=== PATIENT | female | born 1950 | race Caucasian/White ===

== ENCOUNTER 2020-07-01 11:14 | Emergency (ER) | payer OTHER, SELFPAY ==
[~2020-07-01 11:14] MED LIST: ASPIRIN81 MG PO; CENTRUM CHEWAB1 EACH PO; DECADRON4 MG PO; ESOMEPRAZOLE MA40 MG PO; FISH OIL + D31 EACH PO; FISH OIL 1,2001 EACH PO; OMEPRAZOLE20 MG PO; SIMVASTATIN10 MG PO; STOOL SOFTENER100 MG PO; VALSARTAN-HCTZ1 EAC2 PO; XYZAL5 MG PO; ZANTAC 150 MG150 MG PO; ZETIA10 MG PO; ZOFRAN4 MG PO
[2020-07-01 12:43] LABS: HEMOGLOBIN 14.5 gm/dl (12.3-15.3); RED BLOOD COUNT 4.78 M/UL (4.00-5.10); WHITE BLOOD COUNT 9.4 K/UL (4.5-11.0)
[2020-07-01 13:04] LABS: BUN/CREATININE RATIO 15 (0-10)
[2020-07-01] MEDS ORDERED: HYDROCODON-ACE1 EAC4 PO (19:10)
[2020-07-18] MEDS ORDERED: IRBESARTAN-HCT1 EAC1 PO (06:35)
[2020-07-18] MEDS ORDERED: PROMETHAZINE12.5 M1 PO (06:35)
== END 2020-07-01 19:55 | disposition home or self-care (01) ==
LOC: ER1 11:14
PROVIDERS: Student in an Organized Health Care Education/Training Program
DX: S22.081A Stable burst fracture of T11-T12 vertebra, initial encounter for closed fracture (principal); I10 Essential (primary) hypertension; Z88.5 Allergy status to narcotic agent; W18.30XA Fall on same level, unspecified, initial encounter; Y93.29 Activity, other involving ice and snow
CPT/HCPCS: 70450; 71260; 72125; 72128; 72131; 73030; 73562; 73590; 80053; 82550; 82553; 83874; 84484; 85025; 96374; 99284; J2405; Q9967

== ENCOUNTER → 2020-07-13 | Outpatient (CLI) | payer OTHER, SELFPAY ==
[~2020-07-13] MED LIST changes: +HYDROCODON-ACE1 EAC4 PO; +IRBESARTAN-HCT1 EAC1 PO; +PROMETHAZINE12.5 M1 PO
== END ==
LOC: NM 07:36
DX: R94.31 Abnormal electrocardiogram [ECG] [EKG] (principal)
CPT/HCPCS: ECHO; 78452; 93306; A9502; J2785

== ENCOUNTER → 2020-07-17 | Outpatient (CLI) | payer OTHER, SELFPAY ==
[2020-07-17 14:04] LABS: HEMOGLOBIN 14.4 gm/dl (12.3-15.3); RED BLOOD COUNT 4.74 M/UL (4.00-5.10); WHITE BLOOD COUNT 6.8 K/UL (4.5-11.0)
[2020-07-17 14:26] LABS: BUN/CREATININE RATIO 19 (0-10)
== END ==
LOC: OPSV2 12:30
PROVIDERS: Orthopaedic Surgery
DX: Z01.818 Encounter for other preprocedural examination (principal); M43.8X4 Other specified deforming dorsopathies, thoracic region; S22.081A Stable burst fracture of T11-T12 vertebra, initial encounter for closed fracture; R94.31 Abnormal electrocardiogram [ECG] [EKG]; R00.1 Bradycardia, unspecified
CPT/HCPCS: 36415; 71046; 80048; 85027; 93005

== ENCOUNTER → 2020-07-18 | Day surgery (SDC) | payer OTHER, SELFPAY | END | disposition home or self-care (01) | LOC: OR 06:03 | PROVIDERS: Orthopaedic Surgery | PROC: 0PU43JZ Supplement Thoracic Vertebra with Synthetic Substitute, Percutaneous Approach (ICD-10-PCS; 2020-07-18) | PROC: 0PB43ZX Excision of Thoracic Vertebra, Percutaneous Approach, Diagnostic (ICD-10-PCS; 2020-07-18) | PROC: 0PS43ZZ Reposition Thoracic Vertebra, Percutaneous Approach (ICD-10-PCS; principal; 2020-07-18 07:30) | DX: S22.081A Stable burst fracture of T11-T12 vertebra, initial encounter for closed fracture (principal); M40.294 Other kyphosis, thoracic region; I10 Essential (primary) hypertension; E78.5 Hyperlipidemia, unspecified; K21.9 Gastro-esophageal reflux disease without esophagitis; Z79.82 Long term (current) use of aspirin; Z79.899 Other long term (current) drug therapy; Z79.891 Long term (current) use of opiate analgesic; Z20.822 Contact with and (suspected) exposure to COVID-19; Z88.5 Allergy status to narcotic agent; W00.0XXA Fall on same level due to ice and snow, initial encounter | CPT/HCPCS: C1713; J0690; J1100; J1885; J2001; J2405; J2550; J2704; J2710; J3010; J7120; Q9962 ==

== ENCOUNTER 2020-07-27 15:35 | Emergency (ER) | payer OTHER ==
[2020-07-27 17:07] LABS: HEMOGLOBIN 13.4 gm/dl (12.3-15.3); RED BLOOD COUNT 4.5 M/UL (4.00-5.10); WHITE BLOOD COUNT 5.3 K/UL (4.5-11.0)
[2020-07-27 17:31] LABS: BUN/CREATININE RATIO 17 (0-10)
[2020-07-28 03:57] LABS: HEMOGLOBIN 13.1 gm/dl (12.3-15.3); RED BLOOD COUNT 4.48 M/UL (4.00-5.10); WHITE BLOOD COUNT 5.2 K/UL (4.5-11.0)
[2020-07-28 04:10] LABS: BUN/CREATININE RATIO 19 (0-10)
== END 2020-07-28 12:05 | disposition home or self-care (01) ==
LOC: ER1 15:35 → CDU 18:18
PROVIDERS: Emergency Medicine; Internal Medicine
DX: R07.89 Other chest pain (principal); I10 Essential (primary) hypertension; I25.10 Atherosclerotic heart disease of native coronary artery without angina pectoris; I49.3 Ventricular premature depolarization; K21.9 Gastro-esophageal reflux disease without esophagitis; E78.5 Hyperlipidemia, unspecified; F41.9 Anxiety disorder, unspecified; Z20.822 Contact with and (suspected) exposure to COVID-19; Z95.1 Presence of aortocoronary bypass graft; Z88.5 Allergy status to narcotic agent; Z98.890 Other specified postprocedural states; Z79.82 Long term (current) use of aspirin; Z79.899 Other long term (current) drug therapy; Z86.16 Personal history of COVID-19
CPT/HCPCS: 0240U; 71045; 80048; 80053; 82550; 82553; 83735; 83874; 83880; 84484; 85025; 85027; 85610; 93005; 99285; G0378; Q9967

== ENCOUNTER → 2020-08-14 | Outpatient (CLI) | payer OTHER | LOC: US 10:05 | DX: R10.11 Right upper quadrant pain (principal) | CPT/HCPCS: 76705 ==

== ENCOUNTER → 2020-09-03 | Outpatient (CLI) | payer OTHER, SELFPAY | LOC: NM 08-31 13:50 | DX: R14.0 Abdominal distension (gaseous) (principal); Z87.898 Personal history of other specified conditions | CPT/HCPCS: 78227; A9537; J2805 ==

== ENCOUNTER → 2020-09-19 | Outpatient (CLI) | payer OTHER | LOC: MAMO 08-29 14:00 | DX: Z12.31 Encounter for screening mammogram for malignant neoplasm of breast (principal) | CPT/HCPCS: 77063; 77067 ==

== ENCOUNTER → 2020-12-05 | Outpatient (CLI) | payer OTHER | LOC: RAD 08:11 | DX: M54.6 Pain in thoracic spine (principal); M54.5 Low back pain; M54.14 Radiculopathy, thoracic region; G95.89 Other specified diseases of spinal cord; M48.061 Spinal stenosis, lumbar region without neurogenic claudication | CPT/HCPCS: 72072; 72100 ==

== ENCOUNTER → 2021-02-27 | Outpatient (CLI) | payer OTHER | LOC: KOH-I 02-13 09:45 | DX: Z13.6 Encounter for screening for cardiovascular disorders (principal); Z87.891 Personal history of nicotine dependence; Z82.49 Family history of ischemic heart disease and other diseases of the circulatory system | CPT/HCPCS: 76706-PO ==

== ENCOUNTER → 2021-05-21 | Outpatient (CLI) | payer OTHER | LOC: KOH-I 14:53 | DX: M51.16 Intervertebral disc disorders with radiculopathy, lumbar region (principal) | CPT/HCPCS: 72100 ==